=== PATIENT | male | born 1940 | race African-American/Black ===

== ENCOUNTER 2016-11-10 20:47 | Inpatient (IN) | payer MEDICARE, OTHER ==
--- NOTE | ~2016-11-10 | CO ---
Unit #: [id number] #: [id number] Patient: GIRISH THOMAS [id number] [address] [address] [id number] I MR#: [id number] NAME: GIRISH THOMAS ROOM: 577 Age: 76 Sex: M Admission Date: 11/10/2016 : 1940 Attending Physician: Belinda Cabrera M.D. Primary Care Physician: Nathalie Primary Care Physician Requesting Physician: Beilnda Cabrera M.D. Consultation Date: 11/12/2016 CONSULTATION REPORT REASON FOR CONSULTATION Extensive DVT, please evaluate. HISTORY OF PRESENT ILLNESS Girish Thomas is a 76-year-old with a history of multiple medical problems including hypertension, diabetes, chronic kidney disease stage 3, atrial fibrillation, heart failure with multiple admissions to [facility] and [place], who was transferred from [facility] for left leg swelling starting a few days prior to this visit. Doppler study showed an extensive deep venous thrombosis of the left lower extremity and (1) has been anticoagulated with Lovenox 1 mg/kg body weight once daily in view of a creatinine of 2.8. Mrs. Thomas tells me he has had no history of prior blood clots nor does he have a family history. He tells me that the leg is painful but the pain is slightly better. He has no trouble breathing at this point. PAST MEDICAL HISTORY Multiple comorbidities includin. Hypertension. 2. Type 2 diabetes. 3. Chronic kidney disease. 4. Atrial fibrillation. 5. Heart failure. 6. ESBL UTI with multiple admissions. MEDICATIONS Medications at this time include: 1. Aspirin. 2. Flomax. 3. Flonase. 4. Lasix. 5. NitroQuick. 6. [place]. 7. Pacerone. 8. Protonix. 9. Vitamin D. 10. Xanax. 11. Claritin. 12. Questran Light. 13. Combivent. 14. Potassium. 15. Levemir. 16. Prednisone. Unit #: [id number] #: [id number] Patient: GIRISH THOMAS ALLERGIES He has no known medication allergies. SURGICAL HISTORY Wound care. FAMILY HISTORY No history of blood clots. SOCIAL HISTORY Does not smoke or drink any alcohol. He is single and is living by himself prior to his multiple admissions. He is currently a resident of [facility] and would like to go home. REVIEW OF SYSTEMS 14-point review of systems taken. CONSTITUTIONAL: Variable appetite, fatigue. EYES: Negative. EARS, NOSE, MOUTH AND THROAT: Negative. CARDIOVASCULAR: No recent chest pains or palpitations. RESPIRATORY: Chronic shortness of breathing without any season change. MUSCULOSKELETAL: Negative. SKIN: Nonhealing wound of the left foot which is being bandaged. PSYCHIATRIC: Negative. ENDOCRINE: Diabetes. ALLERGY/LYMPHATIC: Negative. NEUROLOGIC: Negative. PHYSICAL EXAMINATION GENERAL: He is a pleasant, elderly man, awake, alert, oriented x3, lying in bed in no distress. VITAL SIGNS: Temperature 98.1, pulse rate 99, respiratory rate 16, blood pressure 123/82, 100% on room air. HEENT: Pupils are equal, react well to light. He is pale but non-icteric. Mucous membranes are moist. NECK: No adenopathy, JVD or thyromegaly. CARDIOVASCULAR SYSTEM: First and second heart sounds are heard and are regular. LUNGS: Chest expansion is symmetric with bilaterally equal air entry. ABDOMEN: Soft, nontender. Bowel sounds active. EXTREMITIES: Left calf is swollen compared to the right. Nail bed capillary return is adequate. He has got a bandage over his left foot which was not removed. DIAGNOSTIC STUDIES LABORATORY: CBC with a white count of 35,300, hemoglobin 9.8, platelets 254,000. Basic metabolic panel shows a BUN of 29, creatinine is 2.8, eGFR is 28.1. Blood culture is negative. Procalcitonin level is 2.09. IMAGING: Doppler studies of the lower extremities reveal an extensive deep venous thrombosis of the entire deep and superficial venous system throughout the lower leg from groin to calf. Unit #: [id number] #: [id number] Patient: GIRISH THOMAS ASSESSMENT AND PLAN Mr. Girish Thomas is 76 years old with multiple comorbidities including chronic kidney disease stage 3, diabetes mellitus, heart failure, CHF, admitted with sepsis as well as an extensive deep venous thrombosis of the left lower extremity. He has not had a CT scan of the chest in view of his kidney disease but, given the need for anticoagulation, I see no reason (2) relatively asymptomatic. He has no family history of blood clots. Additional problems include anemia, likely in part with anemia of chronic kidney disease. RECOMMENDATIONS 1. Agree with Lovenox 1 mg/kg body weight, to be transitioned with chronic anticoagulation and warfarin. 2. Start warfarin 3 mg once daily with daily protime to be started tomorrow, to be anticoagulated for at least three months for his DVT and longer given his history of A-fib. 3. Anemia workup with ferritin, TIBC. May consider Procrit for renal replacement because of chronic kidney disease. Thank you for allowing me to participate in his care. Dictated by... Antwan Betancourt M.D. ALICIA/johnnie TD: 11/12/2016 11:10 JOB #: [id number] CONSULTATION REPORT Page 1 of 1 X Antwan Betancourt MD X CONSULTATION REPORT
--- NOTE | ~2016-11-10 | CO ---
Unit #: [id number] #: [id number] Patient: TIGIST FARLEY [id number] [facility]. [place], [place] [address] [id number] I MR#: [id number] NAME: TIGIST FARLEY ROOM: 01713 Age: 76 Sex: M Admission Date: 11/10/2016 : 1940 Attending Physician: Belinda Cabrera M.D. Primary Care Physician: No Primary Care Physician Consultation Date: 11/11/2016 CONSULTATION REPORT REASON FOR CONSULTATION Sepsis management. HISTORY OF PRESENT ILLNESS This is a 76-year-old male that is known to our service in August and September of this year. He was admitted at [facility] and [facility]. The patient has a past medical history for atrial fibrillation, diabetes, GERD, hypercholesterolemia and hypertension. He was originally admitted for shortness of breath and he was treated multiple times for pneumonia versus fluid overload. The patient had multiple bronchs. However, he did not grow any specific cultures out except for Candice albicans. The patient also had a recent E. coli ESBL urinary tract infection on 10/28/2016 but I am unaware if this was completed therapy. The patient now is admitted to [facility] emergency room from [facility] with feeling poorly for the last three or four days. Patient noted to have some increasing swelling of his left lower extremity and workup shows that he has a systolic blood pressure in the 90s, extensive DVT from his groin to his ankle and his left lower extremity and leukocytosis of 40,000. ID was asked to evaluate for sepsis management. He has been given vancomycin and Zosyn. He is currently awaiting a CT scan of his chest. PAST MEDICAL HISTORY As previously stated in the History of Present Illness. ALLERGIES No known allergies. MEDICATIONS 1. Vancomycin x1. 2. Zosyn x1. For other medications, please refer to patient's MAR. SOCIAL HISTORY Occasional alcohol abuse. No tobacco abuse. No IV drug abuse. REVIEW OF SYSTEMS The patient denies any fever at this time. He does report he has some subjective chills and sweats. He denies any headache, shortness of breath, cough, nausea, vomiting, diarrhea. He does report some pain and tenderness over his bladder. He denies any pain with urination. He reports swelling and tenderness of his left lower extremity. Unit #: [id number] #: [id number] Patient: TIGIST FARLEY PHYSICAL EXAMINATION VITAL SIGNS: Temperature 98.6, pulse is 96, blood pressure 98/63 and respiratory rate is 26. GENERAL: This is a no apparent distress male who is currently resting on the stretcher comfortably. HEENT/NECK: His pupils are equal. His neck is supple. CARDIOVASCULAR: S1, S2. Regular rate and rhythm. PULMONARY: Diminished in the bases but no wheezes or rhonchi noted. He does have a previous trach site that is covered by a Band-Aid from decannulation. ABDOMEN: Positive bowel sounds. Soft. No organomegaly appreciated. There is minimal tenderness over his bladder. EXTREMITIES: Left greater than right edema, swelling and tenderness to palpation. DIAGNOSTIC STUDIES LABORATORY: BUN 20, creatinine 2.1, sodium 136, potassium 4.7, chloride 107, CO2 18, bilirubin 0.9, AST 66, ALT 18, lactic acid 2.9, INR 1.2. White blood cell count is 46,000, hemoglobin 10, hematocrit 33.5, platelets 265. Urinalysis is unremarkable. Blood cultures are currently pending. Stool study for C. diff is pending due to diarrhea x1 this morning. 10/28 urine culture showed ESBL E. coli at an outlying facility. IMAGING: CT scan of the chest is pending. Chest x-ray is negative for cardiopulmonary findings. Cultures on the left lower extremity shows complete thrombosis of the entire deep and superficial venous system throughout the entire left leg from groin to calf. IMPRESSION This is a 76-year-old male that is known to our service from [facility] and [place], recently treated for pneumonia. Now decannulated and resides at [facility]. The patient now presents to the emergency room with several day history of swelling of his left lower extremity and not feeling well. The patient does have some tenderness over his bladder. At this time, the patient has a blood pressure in the 90s. he has significant leukocytosis of 40,000, elevated lactic acid of 2.9. At this time, suspect all symptoms are related to his extensive DVT and do not suspect bacterial infection at this time. The patient does, however, have a recent E. coli urinary tract infection with ESBL. His urinalysis at this time is unremarkable but until blood cultures have returned, will cover patient with meropenem 500 mg IV q.8 hours. Will also check a serum procalcitonin level. Will hold any additional antibiotics. Patient did have diarrhea x1 today but do not suspect C. diff colitis but will follow up on C. diff toxin. Will check a CBC in the morning. The patient's CT scan has been ordered and will follow results but will defer DVT per the admitting team. Thank you for allowing us to participate in the care of this patient. Further recommendations to follow pending patient's clinical course. Unit #: [id number] #: [id number] Patient: TIGIST FARLEY Dictated by... Sariah Pierson, Genny.P.RMuraliN. for Gilbert Mehta M.D. YASMINE/johnnie TD: 11/11/2016 13:48 JOB #: [id number] CONSULTATION REPORT Page 1 of 1 X X CONSULTATION REPORT
--- NOTE | ~2016-11-10 | US85 ---
[facility] A Service of [facility] & [facility] RADIOLOGY TEXT RESULTS PATIENT: TIGIST FARLEY LOCATION: [facility]ED[facility] [address]-80 : 39 UNIT #: [id number] AGE: [address]: Belinda Cabrera MD SEX: M ORDER DR: [id number] [facility] [address]. [place], [place] [address] [id number] I MR#: [id number] Acc #: [id number] NAME: TIGIST FARLEY : 1940 SEX: M STUDY DATE/TIME: 11/10/2016 22:58 UNIT: [facility] ROOM: 38242 STUDY DESCRIPTION: US LE Veins Unilat or Ltd Stdy Attending Physician: Belinda Cabrera M.D. Ordering Physician: Heriberto Duarte M.D. Primary Care Physician: No Primary Care Physician MEDICAL IMAGING REPORT This report is preliminary unless electronic signature is present EXAM Left lower extremity venous ultrasound HISTORY Leg swelling today. FINDINGS Ultrasound examination of the left lower extremity veins was performed from groin to the calf with waller-scale, color Doppler and spectral Doppler evaluation. There is extensive occlusive, contiguous DVT and SVT throughout the entire left lower extremity from the groin to the calf involving all deep and superficial veins. IMPRESSION Complete thrombosis of the entire deep and superficial venous system throughout the entire left lower leg from the groin to the calf. Dictated by... Kurtis Julio M.D. THIS IS AN ELECTRONICALLY VERIFIED REPORT Kurtis Julio M.D. at 11/11/2016 2:38 PM JUAN C/[place] TD: 11/11/2016 02:03 JOB #: [id number] MEDICAL IMAGING REPORT Page 1 of 1 COPY
--- NOTE | ~2016-11-10 | CR72 ---
[facility] A Service of [facility] & [facility] RADIOLOGY TEXT RESULTS PATIENT: TIGIST FARLEY LOCATION: [facility] [id number] : 39 UNIT #: [id number] AGE: [address]: Belinda Cabrera MD SEX: M ORDER DR: [id number] [facility] [address] [place], [place] [address] [id number] MR#: [id number] Acc #: [id number] NAME: TIGIST FARLEY : 1940 SEX: M STUDY DATE/TIME: 11/10/2016 20:22 UNIT: CEDOF ROOM: 34344 STUDY DESCRIPTION: CR Chest Single View Portable Attending Physician: Belinda Cabrera M.D. Ordering Physician: Heriberto Duarte M.D. Primary Care Physician: Primary Care Physician No MEDICAL IMAGING REPORT This report is preliminary unless electronic signature is present EXAM Single view of the chest, 11/10/2016 INDICATION Shortness of air and chest tightness. Single portable AP view of the chest compared to CT chest dated 10/22/2016. Heart and mediastinal contour is normal. Lungs are clear. No pleural effusion. IMPRESSION No acute cardiopulmonary findings. Dictated by... Clive Terrazas M.D. THIS IS AN ELECTRONICALLY VERIFIED REPORT Clive Terrazas M.D. at 11/11/2016 2:31 PM LANCE/shawn TD: 11/11/2016 01:09 JOB #: [id number] MEDICAL IMAGING REPORT Page 1 of 1 COPY
--- NOTE | ~2016-11-10 | CO ---
Unit #: [id number] #: [id number] Patient: TIGIST FARLEY [id number] [address] [place], [place] [address] [id number] I MR#: [id number] NAME: TIGIST FARLEY ROOM: 577 Age: 76 Sex: M Admission Date: 11/10/2016 : 1940 Attending Physician: Belinda Cabrera M.D. Primary Care Physician: Nathalie Primary Care Physician Consultation Date: 11/13/2016 CONSULTATION REPORT REASON FOR CONSULTATION DVT. HISTORY OF PRESENT ILLNESS This is a 76-year-old gentleman who was [facility] after a bout of pneumonia. He has several medical problems including chronic kidney disease stage 3, hypertension, diabetes, history of AFib and CHF. He was transferred over to [facility] and the patient states that on Thursday or Thursday he started noticing some left leg pain and swelling. He feels like the swelling is a little bit better, however, he still has some tenderness in the left leg. He also states that he has a left heel wound, which has been there [facility]. The patient was initially admitted with a white blood cell count of 30 and was being worked up for sepsis. The patient otherwise feels well. He denies any previous history of claudication, leg infections, or nonhealing wounds. He does say that he was mostly bedridden while at [facility]. He is not very active the past several weeks either. He denies any family history of bleeding disorders or clotting disorders. He has no person episodes of a previous DVT to his knowledge. He has not had a recent colonoscopy. He is currently on Lovenox and Coumadin for treatment. PAST MEDICAL HISTORY Includes chronic kidney disease stage 3, diabetes, hypertension, hyperlipidemia, AFib, congestive heart failure, ESBL UTI, and GERD. MEDICATIONS Aspirin, Flomax, Flonase, Lasix, NitroQuick, [place], Pacerone, Protonix, vitamin D3, Xanax, Claritin, Questran, Combivent, potassium, Levemir, and prednisone. ALLERGIES No known drug allergies. SOCIAL HISTORY Denies any tobacco use, alcohol use, or illicit drugs. Apparently lives at [facility]. FAMILY HISTORY Denies any known bleeding disorders, clotting disorders, or aneurysms. REVIEW OF SYSTEMS Other than what is describe as above: Unit #: [id number] #: [id number] Patient: TIGIST FARLEY CONSTITUTIONAL: Denied any fevers or chills. ENT: Denies any ear pain, tinnitus, or sore throat. RESPIRATORY: Denies any shortness of breath or cough. CARDIOVASCULAR: Denies any chest pain or palpitations. GI: Denies any nausea, vomiting, diarrhea. : Denies any hematuria. HEMATOLOGY: Denies any easy bruising. ENDOCRINE: Denies any excessive thirst or hunger. MUSCULOSKELETAL: Denies any back pain or neck pain. INTEGUMENTARY: Denies any rash or pruritus. PHYSICAL EXAMINATION VITAL SIGNS: Temperature 98.2, heart rate 86, blood pressure 127/74, respiration 16, 97% on room air. CONSTITUTIONAL: Well appearing. EYES: No scleral icterus. NECK: No JVD. No carotid bruit. LYMPH: No lymphadenopathy in the neck or groins. CARDIOVASCULAR: Regular rate and rhythm. PULSE: 2+ femoral pulses. RESPIRATIONS: Nonlabored respirations. Clear to auscultation bilaterally. ABDOMEN: Soft, nontender, nondistended. SKIN: No rashes or ulcerations, other than on his left heel. There is some superficial eschar. PSYCHIATRIC: Normal mood and affect. EXTREMITIES: Left leg 1+ nonpitting edema. No erythema. Left DT and PT signals are multiphasic. DIAGNOSTIC STUDIES LABORATORY RESULTS: White blood cell count is 20.3, hematocrit 27.5, platelets 228. Sodium is 138, potassium 4.5, chloride 108, CO2 22, BUN 27, creatinine 1.8, glucose 93. INR 1.1. UA is negative. AST is 66, ALT is 118, alk phos 146, T. bili 0.9, albumin 2.6, lipase was 1.0. IMAGING STUDIES: Chest x-ray on 11/10/2016 - negative for acute cardiopulmonary process. GAUTAM 10/2016 - right GAUTAM is 1.23, left GAUTAM is 1.29. ASSESSMENT AND PLAN 76-year-old male with multiple medical problems with two vascular issues: 1. Acute left lower extremity DVT. I reviewed and interpreted the left leg venous duplex, which demonstrated an acute DVT from the full extent of the left common femoral vein down to the femoral veins of the popliteal, down to the tibials. He did not have any acute signs of phlegmasia. He is not a candidate for Lasix given his multiple comorbidities. He is currently on Lovenox, although I would probably recommend drip given his elevated creatinine. He is on Coumadin. He likely should required anticoagulation for three to six months, probably six months. The etiology of his DVT might be contributed to his bedbound state over the last several weeks. However, a cancer screening should also be considered. He has not had a colonoscopy recently, he also has mildly elevated LFTs, which may need to be further evaluated by the primary team. 2. He has a left heel wound, likely also from his bedbound state. Does not appear infected. There is somewhat of a dry eschar. I reviewed his ABIs from October 2016, and he has no evidence of arterial Unit #: [id number] #: [id number] Patient: TIGIST FARLEY insufficiency with ABIs greater than 1.2 and tracings are also flexion and digital pressures are greater than 100, and tracings are all normal. So he likely should be able to heal his wound as long as he maintains offloading of that left heel. RECOMMENDATIONS Main recommendation is for the left leg to be Lamin wrapped with a 4 inch Lamin wrap from the foot to the knee and then a 6 inch Lamin wrap from the knee to the thigh. This morning a Coban wrap was used instead, which I do not think is a ideal. He also had a Ortiz catheter that was attached to his left thigh, which the nurse had wrapped around, rather than just replacing it and moving it to the right leg. I placed new orders for the left leg to be rewrapped with an Lamin wrap and not a Coban and they can move the Ortiz catheter to the right leg. Long-term upon discharge, he will likely need 30 to 40 mmHg compression stockings, to reduce the risk of post (1) syndrome, given the extensive nature of this DVT. We will continue to follow the patient for now while he is an inpatient. Dictated by... Daryl Lazo M.D. Fatimah TD: 11/13/2016 08:56 JOB #: [id number] CONSULTATION REPORT Page 1 of 1 X X CONSULTATION REPORT
--- NOTE | ~2016-11-10 | DS ---
Unit #: [id number] #: [id number] Patient: GIRISH FARLEY [id number] [address] [address] [id number] MR#: [id number] NAME: GIRISH FARLEY ROOM: 577 Age: 76 Sex: M Admission Date: 11/10/2016 : 1940 Discharge Date: 11/14/2016 Attending Physician: Belinda Cabrera M.D. Primary Care Physician: Nathalie Primary Care Physician DISCHARGE SUMMARY DISCHARGE DIAGNOSES 1. Extensive deep venous thrombosis of left lower extremity. 2. Scrotal swelling, most likely dependent edema secondary to deep venous thrombosis. 3. Chronic kidney disease stage 3. 4. Diabetes mellitus type 2. 5. Hypertension. 6. Hyperlipidemia. 7. History of atrial fibrillation. 8. History of gastroesophageal reflux disease. 9. Leukocytosis of 40,000 which is decreased at this time. 10. Recent history of extended spectrum beta lactamases Escherichia coli infection. CONSULTATIONS DURING HOSPITALIZATION 1. Dr. Betancourt from hematology services. 2. Dr. Mehta from infectious disease services. 3. Dr. Tran from vascular surgery. DISCHARGE MEDICATIONS 1. Hydrocodone 7.5/325 one tablet q.4 p.r.n. 2. Protonix 40 mg daily. 3. Potassium 20 mEq daily. 4. Nitroglycerin 0.4 mg sublingual p.r.n. for chest pain. 5. Vitamin D3 continue home dose. 6. Claritin 10 mg daily. 7. Xanax 0.25 mg q.6 p.r.n. 8. Lasix 40 mg daily. 9. Levemir 10 units subcutaneous b.i.d. 10. Aspirin 81 mg daily. 11. Nebulizer treatment with albuterol and ipratropium q.i.d. 12. Prednisone 20 mg daily and taper it down to 10 mg in three days, then discontinue. 13. Flomax 0.4 mg daily. 14. Amiodarone 100 mg daily. 15. Tylenol 650 q.4 p.r.n. 16. Flonase nasal spray as needed. 17. Lovenox 80 mg subcutaneous q.24 hours. 18. Coumadin 3 mg daily. DIAGNOSTIC STUDIES LABORATORY: Lab workup on discharge: Sodium 138, potassium 4.5, chloride 108, BUN 27, creatinine 1.8, calcium 8. Lactic acid 1. WBC 20.3, hemoglobin 8.3, hematocrit 27.5, platelet count 208,000. WBC was elevated Unit #: [id number] #: [id number] Patient: GIRISH FARLEY to 35.3 on admission, so it is trending down. Patient is not on any antibiotics. IMAGING: Imaging studies done during hospitalization were: Ultrasound of the left lower extremity which showed complete thrombosis of the entire deep and superficial venous system throughout the entire left lower leg from groin to the calf. HOSPITAL COURSE Mr. Girish Farley is a 76-year-old male, who is a resident of prison at [facility]. He was admitted to the hospital with leg swelling and lethargy. The patient was found to have extensive DVT, which is superficial and deep complete thrombosis. The patient had entire left lower extremity from groin to the calf involving all deep and superficial veins. The patient was started on Lovenox full dose [address] Betancourt was consulted. The patient has also been started on Coumadin. The patient will need anticoagulation therapy for at least six months or so in view of his atrial fibrillation history also. Leukocytosis: Patient did have leukocytosis on admission up to 35.5. Infectious disease was consulted. All the workup was done which was negative. Panculture is negative. As per ID recommendation, patient's antibiotic was discontinued. The patient is not on any antibiotic at this time and seems to be doing well and WBC count is trending down. Patient does have scrotal swelling, most likely it is dependent edema secondary to DVT. Patient is going to receive one dose of IV Lasix today. He is on Lasix dose. The patient's blood pressure during hospitalization has been stable, so will continue the same medication. The patient has history of diabetes mellitus. It seems to be stable. It is running in the range of 80-190 or so in the last 24 hours. PHYSICAL EXAMINATION VITAL SIGNS: On discharge, blood pressure is 137/70, respiratory rate 24, pulse 74, temperature 97.8. CHEST: Decreased air entry bilaterally. CARDIOVASCULAR: S1, S2 positive. Regular. EXTREMITIES: Left lower extremity extensive swelling is present. Scrotal swelling is present. DISCHARGE INSTRUCTIONS 1. The patient will be discharged to prison if okay with Dr. Betancourt. 2. Medications as per med rec. 3. PT/INR to be done on daily basis. 4. Left lower extremity needs to be elevated. 5. As per vascular surgeon, Dr. Lazo, the patient will need Lamin wrapped with a 4-inch Lamin wrap from the foot to the knee and then a 6 inch Lamin wrap from the knee to the thigh and recommended that Ortiz catheter to be attached to the right leg instead of left. 6. joint terminal attack controller upon discharge, he will need 30-40 mm of compression stockings. Plan of care has been discussed with patient at length. Unit #: [id number] #: [id number] Patient: GIRISH FARLEY Dictated by... Gene Shah/alexa TD: 11/14/2016 11:52 JOB #: [id number] DISCHARGE SUMMARY Page 1 of 1 X Belinda Cabrera MD X DISCHARGE SUMMARY
--- NOTE | ~2016-11-10 | HP ---
Unit #: [id number] #: [id number] Patient: TIGIST FARLEY [id number] [facility] [address] [place], [place] [address] [id number] MR#: [id number] NAME: TIGIST FARLEY ROOM: 87231 Age: 76 Sex: M Admission Date: 11/10/2016 : 1940 Attending Physician: Belinda Cabrera M.D. Primary Care Physician: Primary Care Physician No HISTORY AND PHYSICAL HISTORY OF PRESENT ILLNESS This is a 76-year-old male with multiple medical problems who was transferred from [facility] for lethargy and leg swelling. Mr. Farley is a 76-year-old. He has multiple medical problems including hypertension, diabetes mellitus, chronic kidney disease stage 3, history of atrial fibrillation, history of congestive heart failure, history of ESBL UTI, multiple admissions in [facility] and [facility], status post trach in the past which has been closed at this time. He came because of above symptoms. According to him, he was discharged from [facility] 2-1/2 weeks ago and he went to [facility]. He was doing okay until the last few days ago when he started having left leg pain. The patient was noted to have swelling of the left lower extremity. There is swelling. There is pain and some numbness which was gradually getting worse. The patient was seen in ER at [facility] and he was diagnosed with extensive thrombosis of the left lower extremity. The patient is being admitted. The patient was found to have WBC count of 30.8 and is being worked up for sepsis. According to patient, he has no complaint of chest pain. He does have some abdominal pain but not severe. No complaint of constipation or diarrhea. No complaint of chest pain. No shortness of breath more than normal. The patient still has some cough but no major sputum production. The patient is kind of a poor historian, most of the history was taken from the chart and some from the hospital. We are going to try to get discharge summary and History and Physical from [facility] and hopefully that would help us some. PAST MEDICAL HISTORY 1. History of chronic kidney disease, stage 3. 2. Diabetes mellitus type 2. 3. Hypertension. 4. Hyperlipidemia. 5. History of atrial fibrillation. 6. Congestive heart failure. 7. ESBL UTI. 8. GERD. HOME MEDICATIONS As per medication reconciliation which are: 1. Aspirin 81 mg daily. 2. Flomax 0.4 mg daily. 3. Flonase daily. 4. Lasix 40 mg daily. Unit #: [id number] #: [id number] Patient: TIGIST FARLEY 5. NitroQuick 0.4 mg sublingual p.r.n. 6. Kent 7.5/325 one tablet q.4 h. p.r.n. 7. Pacerone 100 mg daily. 8. Protonix 40 mg daily. 9. Vitamin D3 daily. 10. Xanax 0.25 mg q.6 h. p.r.n. 11. Claritin 10 mg daily. 12. Questran 4 grams b.i.d. 13. Combivent inhaler q.6 h. 14. Potassium 20 mEq daily. 15. Tylenol 650 q.4 h. p.r.n. 16. Levemir 10 units subcu b.i.d. 17. Prednisone 20 mg daily. ALLERGIES No known drug allergies. SOCIAL HISTORY No history of smoking, alcohol abuse or drug abuse. He is residing at [facility] at this time. REVIEW OF SYSTEMS As per history of presenting illness. He does not complain of any fever. No complaint of chills, no complaints of sweats, no complaint of headache, no complaints of chest pain, no complaint of cough or shortness of breath or diarrhea. He does complain of some abdominal pain. PHYSICAL EXAMINATION VITAL SIGNS: Blood pressure 130/77, respiratory rate 22, pulse 110, temperature 97.9, oxygen saturation 98%. On admission, patient's blood pressure was 96/58, respiratory rate 30, pulse 127, temperature was 99.1, oxygen saturation was 99%. GENERAL: The patient is being seen in ER bed 7. HEAD: Normocephalic. Eye movements are normal. NECK: Supple. CHEST: Fair air entry, no additional sounds. HEART: S1, S2 positive, regular rhythm. ABDOMEN: Obese, soft, mild tenderness all over. Bowel sounds are positive. EXTREMITIES: Left lower extremity swelling and tenderness is present. Homans sign is positive. NEUROLOGIC: Awake, alert, oriented x2. DIAGNOSTIC STUDIES LABORATORY: Lactic acid 4.4. WBC 30.8, hemoglobin 10.0, hematocrit 32.3, platelet count 328. Sodium 135, potassium 3.3, chloride 101, BUN 7, creatinine 1.5. Urinalysis was done which shows trace protein. IMAGING: X-ray shows no infiltrate. Venous Doppler shows complete thrombosis of the entire deep and superficial vein system throughout the entire left lower leg. ASSESSMENT AND PLAN The patient is being admitted to telemetry unit with: 1. Sepsis. 2. Rule out a bacterial infection. 3. Extensive thrombosis of the deep and superficial vein of left lower Unit #: [id number] #: [id number] Patient: TIGIST FARLEY. 4. Hypokalemia. 5. Chronic kidney disease stage 3. 6. Diabetes mellitus type 2. 7. History of atrial fibrillation. 8. History of congestive heart failure. 9. History of ESBL urinary tract infection. PLAN 1. Admit to the telemetry unit. 2. Dr. Mehta has been consulted. 3. IV antibiotic is being adjusted as per his recommendation. 4. Panculture has been done. 5. Reimbursement Spec will be consulted. 6. Patient has been started on 1 mg/kg body weight subcu q.12 h. 7. Echo results, History and Physical and discharge summary from [facility] will be obtained. 8. Labs will be repeated tomorrow morning. 9. Please refer to progress note for the rest of the orders. Dictated by Gene Shah/kevin TD: 11/11/2016 16:13 JOB #: [id number] HISTORY AND PHYSICAL Page 1 of 1 X Belinda Cabrera MD X HISTORY AND PHYSICAL
--- NOTE | ~2016-11-10 | EKG ---
PATIENT: TIGIST FARLEY UNIT #: [id number] Ventricular Rate: 118 BPM Atrial Rate: 118 BPM P-R Interval: 164 ms QRS Duration: 100 ms Q-T Interval: 360 ms QTC Calculation(Bezet): 504 ms P [place]: 53 degrees Calculated R [place]: -79 degrees Calculated T [place]: 66 degrees Diagnosis Line: Sinus tachycardia Diagnosis Line: Left anterior fascicular block Diagnosis Line: Left ventricular hypertrophy with repolarization Diagnosis Line: abnormality Diagnosis Line: Cannot rule out Septal infarct , age undetermined Diagnosis Line: Abnormal ECG Diagnosis Line: No previous ECGs available Diagnosis Line: Confirmed by KINGSLEY TOLEDO MD ([id number]) on 11/11/2016 Diagnosis Line: 11:23:40 PM INTERPRETING MD: PARIS RAMIRES
[2016-11-10 20:44] LABS: BASOPHIL# 0.1 X10e3 (0-0.3); BASOPHIL% 0.2 % (0-2.5); HEMATOCRIT 32.3 % (38.0-50.0); LYMPHOCYTE# 1.4 X10e3 (1.0-3.5); LYMPHOCYTE% 4.6 % (17.0-45.0); MEAN CELL VOLUME 86.7 FL (83-96); MEAN CORPUSCULAR HEMOGLOBIN 26.8 PG (28-34); MEAN CORPUSCULAR HGB CONC 30.9 g/dL (30-36); MEAN PLATELET VOLUME 8.5 FL (6.5-11.5); MONOCYTE# 1.1 X10e3 (0-1.0); MONOCYTE% 3.7 % (3.0-12.0); NEUTROPHIL# 28.2 X10e3 (1.5-7.1); NEUTROPHIL% 91.5 % (40-75); PLATELET COUNT 328 X10e3 (140-420); RED BLOOD COUNT 3.72 X10e (3.90-5.60); RED CELL DISTRIBUTION WIDTH 17.3 % (11.0-15.5); WHITE BLOOD COUNT 30.8 X10e3 (4.0-10.5)
[2016-11-10 20:45] LABS: POC - CKMB <1.0 ng/mL (0.0-7.9); POC - TROPONIN <0.05 ng/mL (<=0.05)
[~2016-11-10 20:47] MED LIST: CLARITIN10 M3 PO; DELTASONE20 MG PO; HYDROCODON-ACE1 EAC9 PO; NITROQUICK0.4 MG SL; PACERONE100 MG PO; POTASSIUM CITR15 MEQ PO; PROTONIX PO; QUESTRAN PACK4 G/PK1 PO; TYL325 PO; VITAMIN D3400 UNI1; XANAX0.5 M1 PO
[2016-11-10 20:48] LABS: DIFF IND YES
[2016-11-10 20:58] LABS: INR 1.2; PROTHROMBIN TIME (PATIENT) 12.2 SECONDS (9.6-11.5)
[2016-11-10 21:06] LABS: HYPERSEGMENTED POLYS PRESENT
[2016-11-10 21:07] LABS: ANISOCYTOSIS MOD; HYPOCHROMIA SL
[2016-11-10 21:08] LABS: PLATELET ESTIMATE NORMAL (NORMAL); POLYCHROMASIA SL
[2016-11-10 21:11] LABS: ALBUMIN SERUM 2.6 g/dL (3.5-5.0); BILIRUBIN, DIRECT 0.1 mg/dL (0.0-0.2); BILIRUBIN,INDIRECT 0.8 mg/dL (0.0-0.9); BILIRUBIN,TOTAL 0.9 mg/dL (0.2-2.0); BUN/CREATININE RATIO 11.33; CALCIUM SERUM 8.4 mg/dL (8.4-10.2); CREATININE SERUM 1.5 mg/dL (0.6-1.4); GLOM FILT RATE Estimated 51.3 mL/min (>60); POTASSIUM 3.3 mmol/L (3.5-5.1); PROTEIN TOTAL SERUM 6.7 g/dL (6.0-8.3)
[2016-11-10 21:15] LABS: URINE APPEARANCE CLEAR; URINE BILIRUBIN NEG (NEG); URINE BLOOD NEG (NEG); URINE COLOR YELLOW; URINE GLUCOSE NEG (NEG); URINE KETONE NEG (NEG); URINE LEUKOCYTE ESTERASE NEG (NEG); URINE NITRATE NEG (NEG); URINE PROTEIN TRACE (NEG); URINE SPECIFIC GRAVITY 1.015 (1.003-1.035); URINE UROBILINOGEN 0.2 MG/DL (NEG)
[2016-11-10 21:16] LABS: CULTURE INDICATED? NO
[2016-11-10] MEDS ORDERED: ASPIRIN EC81 M1 PO (23:56)
[2016-11-10] MEDS ORDERED: FLOMAX0.4 M1 PO (23:57)
[2016-11-10] MEDS ORDERED: FLONASE 0.05% N16 GM (23:57)
[2016-11-10] MEDS ORDERED: LASIX PO (23:58)
[2016-11-10] MEDS ORDERED: MULTI VITAMIN1 EACH PO (23:58)
[2016-11-11] MEDS ORDERED: COMBIVENT U/D3 ML INH (00:17)
[2016-11-11 04:22] LABS: BASOPHIL# 0.2 X10e3 (0-0.3); BASOPHIL% 0.4 % (0-2.5); HEMATOCRIT 33.5 % (38.0-50.0); HEMOGLOBIN 10.1 gm/dL (13.0-16.0); LYMPHOCYTE# 0.8 X10e3 (1.0-3.5); LYMPHOCYTE% 1.7 % (17.0-45.0); MEAN CELL VOLUME 88.1 FL (83-96); MEAN CORPUSCULAR HEMOGLOBIN 26.6 PG (28-34); MEAN CORPUSCULAR HGB CONC 30.2 g/dL (30-36); MEAN PLATELET VOLUME 8.9 FL (6.5-11.5); MONOCYTE# 1.4 X10e3 (0-1.0); NEUTROPHIL# 44.1 X10e3 (1.5-7.1); NEUTROPHIL% 94.9 % (40-75); PLATELET COUNT 265 X10e3 (140-420); RED BLOOD COUNT 3.81 X10e (3.90-5.60); RED CELL DISTRIBUTION WIDTH 17.8 % (11.0-15.5)
[2016-11-11 04:23] LABS: DIFF IND NO; WHITE BLOOD COUNT 46.4 X10e3 (4.0-10.5)
[2016-11-11 04:41] LABS: BUN/CREATININE RATIO 9.52; CREATININE SERUM 2.1 mg/dL (0.6-1.4); GLOM FILT RATE Estimated 34.2 mL/min (>60); POTASSIUM 4.7 mmol/L (3.5-5.1)
[2016-11-11] MEDS ORDERED: K-DUR20 ME2 PO (11:22)
[2016-11-11] MEDS ORDERED: TYL325 PO (11:24)
[2016-11-11] MEDS ORDERED: LEVEMIR100 UNITS/ SUBQ (11:26)
[2016-11-11] MEDS ORDERED: PREDNISONE10 MG PO (11:28)
[2016-11-12 07:19] LABS: HEMATOCRIT 32.8 % (38.0-50.0); HEMOGLOBIN 9.8 gm/dL (13.0-16.0); MEAN CELL VOLUME 88.8 FL (83-96); MEAN CORPUSCULAR HEMOGLOBIN 26.6 PG (28-34); MEAN PLATELET VOLUME 10.1 FL (6.5-11.5); RED BLOOD COUNT 3.69 X10e (3.90-5.60); RED CELL DISTRIBUTION WIDTH 18.1 % (11.0-15.5); WHITE BLOOD COUNT 35.3 X10e3 (4.0-10.5)
[2016-11-12 07:20] LABS: BUN/CREATININE RATIO 10.35; CREATININE SERUM 2.8 mg/dL (0.6-1.4); GLOM FILT RATE Estimated 24.1 mL/min (>60); POTASSIUM 4.6 mmol/L (3.5-5.1)
[2016-11-12 11:01] LABS: IRON SERUM <5 ug/dL (45-182); TOTAL IRON BINDING CAPACITY 145 ug/dL (252-460); TRANSFERRIN 104 mg/dL (180-329); TRANSFERRIN SATURATION 3 % (20-50)
[2016-11-12 11:06] LABS: FERRITIN 138 ng/mL (24-336)
[2016-11-13 05:25] LABS: INR 1.1; PROTHROMBIN TIME (PATIENT) 11.3 SECONDS (9.6-11.5)
[2016-11-13 05:36] LABS: HEMATOCRIT 27.5 % (38.0-50.0); HEMOGLOBIN 8.3 gm/dL (13.0-16.0); MEAN CELL VOLUME 87.7 FL (83-96); MEAN CORPUSCULAR HEMOGLOBIN 26.4 PG (28-34); MEAN CORPUSCULAR HGB CONC 30.1 g/dL (30-36); MEAN PLATELET VOLUME 9.4 FL (6.5-11.5); RED BLOOD COUNT 3.14 X10e (3.90-5.60); RED CELL DISTRIBUTION WIDTH 17.7 % (11.0-15.5); WHITE BLOOD COUNT 20.3 X10e3 (4.0-10.5)
[2016-11-13 06:21] LABS: CREATININE SERUM 1.8 mg/dL (0.6-1.4); GLOM FILT RATE Estimated 41.2 mL/min (>60); POTASSIUM 4.5 mmol/L (3.5-5.1)
[2016-11-14 12:01] LABS: HEMATOCRIT 25.2 % (38.0-50.0); HEMOGLOBIN 7.7 gm/dL (13.0-16.0); MEAN CELL VOLUME 88.2 FL (83-96); MEAN CORPUSCULAR HEMOGLOBIN 27.1 PG (28-34); MEAN CORPUSCULAR HGB CONC 30.8 g/dL (30-36); MEAN PLATELET VOLUME 8.8 FL (6.5-11.5); RED BLOOD COUNT 2.85 X10e (3.90-5.60); RED CELL DISTRIBUTION WIDTH 17.5 % (11.0-15.5); WHITE BLOOD COUNT 10.5 X10e3 (4.0-10.5)
[2016-11-14 12:12] LABS: PROTHROMBIN TIME (PATIENT) 10.7 SECONDS (9.6-11.5)
== END 2016-11-14 17:30 | DRG 299 ==
LOC: CED 20:47 → CEDOF 23:20 → C5C 11-11 20:01
PROVIDERS: Emergency Medicine; Internal Medicine Hematology & Oncology; Nurse Practitioner Family; Physician Assistant Medical
DX: I82.402 Acute embolism and thrombosis of unspecified deep veins of left lower extremity (principal); A41.9 Sepsis, unspecified organism; J84.10 Pulmonary fibrosis, unspecified; I48.91 Unspecified atrial fibrillation; E11.9 Type 2 diabetes mellitus without complications; K21.9 Gastro-esophageal reflux disease without esophagitis; E78.00 Pure hypercholesterolemia, unspecified; I12.9 Hypertensive chronic kidney disease with stage 1 through stage 4 chronic kidney disease, or unspecified chronic kidney disease; N18.3 Chronic kidney disease, stage 3 (moderate); N50.89 Other specified disorders of the male genital organs; Z79.82 Long term (current) use of aspirin; Z79.52 Long term (current) use of systemic steroids; E87.6 Hypokalemia
CPT/HCPCS: 36415; 51702; 71010; 80048; 80076; 81003; 82308; 82553; 82607; 82728; 82947; 83540; 83550; 83605; 83690; 84484; 85025; 85027; 85610; 85730; 87040; 93005; 93971; 94640; 94760; 96365; 99285; J1650; J1815; J1940; J2185; J2543; J3010; J3370